=== PATIENT | male | born 1940 | race Caucasian/White ===

== ENCOUNTER 2019-08-17 20:05 | Emergency (ER) | payer MEDICARE, SELFPAY ==
--- NOTE | ~2019-08-17 | XR_ITS ---
EXAMINATION: XR chest ET placement INDICATION: Endotracheal tube placement TECHNIQUE: Portable AP chest at 2103 hours COMPARISON: 07/30/2015 FINDINGS: The endotracheal tube ends approximately 2.3 cm above the adam. There is mild chronic ate lectasis in the left mid and lower lung zones. There appear to be mild diffuse interstitial and airsp syl opacities. The heart size is upper limits of normal for technique. A small left pleural effusion is questioned. No pneumothorax is identified. Suture anchors are noted in the left humeral head. Ther e is moderate right shoulder osteoarthritis. IMPRESSION: 1. Endotracheal tube approximately 2 cm above the adam. 2. Possible diffuse lung disease which could reflect atelectasis and/or pulmonary edema and/or pneumo isaac. Reviewed, dictated and finalized at location A. TY ONE DEALER IMPRESSION: 1. Endotracheal tube approximately 2 cm above the adam. 2. Possible diffuse lung disease which could reflect atelectasis and/or pulmona ry edema and/or pneumonia.
--- NOTE | ~2019-08-17 | CT_ITS ---
EXAMINATION: CT brain wo con INDICATION: Unresponsive, CODE BLUE COMPARISON: 07/28/2015 TECHNIQUE: Standard unenhanced head CT. The dose-length product (DLP) was 605.33 mGy-cm. The mA was a djusted according to patient size. Iterative reconstruction technique was employed. FINDINGS: There is no acute intraparenchymal hemorrhage. No evidence of mass lesion. No evidence of a cute infarction. There is mild periventricular and subcortical hypodensity probably related to small vessel ischemic disease. There is mild prominence of the sulci and ventricles related to cerebral atr ophy. Intracranial calcified cerebral atherosclerosis is noted. There are no extra-axial collections. There is no mass effect or midline shift. Changes in the globes are likely from ocular lens surgery. The visualized sinuses and mastoid air cells are well aerated. IMPRESSION: 1. No acute intracranial abnormality. 2. Age related findings. Reviewed, dictated and finalized at location A. LSMITH APPRENTICE
--- NOTE | ~2019-08-17 | XR_ITS ---
EXAMINATION: XR abdomen NG/feed tube insert INDICATION: Nasogastric tube insertion TECHNIQUE: KUB NG at 2130 hours COMPARISON: None available FINDINGS: The nasogastric tube is in the stomach. The bowel gas pattern is unremarkable. Surgical cli ps in the right upper quadrant are likely from prior cholecystectomy. Airspace opacities are present in the visualized lung bases. IMPRESSION: 1. Nasogastric tube in the stomach. 2. Left basilar airspace opacities, consistent with atelectasis versus pneumonia. Reviewed, dictated and finalized at location A. EY BREEDER IMPRESSION: 1. Nasogastric tube in the stomach. 2. Left basilar airspace opacities, consistent with atelectasis versus pneumoni a.
--- NOTE | 2019-08-17 20:03 | PC.NURSE ---
2003: pt arrived to ed w/ ems rinku performing chest compressions. pt was placed on monitor, showed effective compressions. 2005: dose of epi given through [facility] per md verbal orders 2007: 1L NS started in [facility] IO 2008: dose of epi given per md verbal orders 2009: pulse check, has pulse 2010: pt states pt is DNR but states she wants to dr to intubate pt, she states she ins't sure if she wants pt to be placed on vent just yet. resp. kings airway still placed, resp therapist 2014: md intubated pt w/ 7.5, 24 @ lip, respiratory therapist continuing bagging pt per orders. pt 02 saturation 96% at this time. 2016: VS: 73HR, 96% w/ resp bagging, 158/59, 23R 2023: EKG done on pt 2039: #20 in RAC at this time 2045: blood sent to lab at ths time 0: 1L LR started in RAC at this time per md orders 2048: 14F coude urinary catheter placed in pt by veronica spares scheduler 2100: 16F OG placed in pt by this RN see code sheet
--- NOTE | 2019-08-17 20:08 | ED.CPR ---
HPI - CPR General Chief Complaint: Cardiac Arrest/CPR Stated Complaint: unresp Time Seen by Provider: 08/17/19 20:05 Source: EMS Mode of arrival: EMS Limitations: clinical condition History of Present Illness HPI narrative: Pt is a 79 y/o male who presents to the ED, via EMS, with c/o a cardiac arrest. EMS was at bedside and provided the information. Pt?s cardiac arrest was witnessed by his spouse. Pt was parking his car at [employer] and his noticed that he began to ?act funny. Pt got out of the car and fell on the ground before his cardiac arrest began. EMS states that they arrived to the scene three minutes after EMS was called. EMS arrived to the scene at 19:45. EMS started CPR on scene. Pt's blood sugar was 204 at the scene. Pt was in asystole during the ride to the ED. Pt's spouse arrived later to the room after EMS left the room and she states the pt is a DNR. Pt's blood sugar was 204 at the scene. Pt was in asystole during the ride to the ED. HPI is limited due to pt's clinical condition. complaint: other (collapsed after getting out of the car) Onset (ago): minute(s) Time: 19:53 Timing confirmed by: spouse Place: other ([employer]) Initial findings in the field: other rhythm (asystole) Associated injuries: No Known history of: other (CHF) Treatments prior to arrival: chest compressions Related Data Allergies Allergy/AdvReac Type Severity Reaction Status Date / Time No Known Allergies Allergy Verified 10/23/18 17:03 Review of Systems Review of Systems: ROS unobtainable: other (due pt's clinical condition) [facility] Past Medical History Medical History (Updated 08/18/19 @ 00:36 by Dayna Mcgee MD) Anxiety Arthritis Cataracts, bilateral CHF (congestive heart failure) CKD (chronic kidney disease), stage III Clostridium difficile carrier CVA (cerebrovascular accident) DDD (degenerative disc disease) bilateral hips Depression DNR (do not resuscitate) Falls Foot fracture GERD (gastroesophageal reflux disease) History of angina HTN (hypertension) Hyperlipidemia Peripheral neuropathy Peripheral vascular disease Sleep apnea Type II diabetes mellitus UTI (urinary tract infection) Surgical History Surgical History (Updated 08/17/19 @ 20:21 by Georgina Fisher) H/O left knee surgery H/O prostatectomy History of left hip replacement History of right hip replacement Hx of cataract removal with insertion of prosthetic lens left Hx of shoulder surgery leftleft S/P TURP Family History Family History (Updated 12/04/18 @ 15:29 by DOCTOR UNKNOWN) Father Diabetes mellitus Other Family history of arthritis Family history of cardiovascular disease Family history of malignant neoplasm Hypertension Social History Social History Smoking status: Never smoker Alcohol intake: never Exam Const: General: ill appearing Limitations: physical limitations Other: unresponsive HENMT: Head: no palpable skull fracture and normocephalic Throat: other Other: food in oropharynx Eyes: Pupils: dilated and fixed Chest: Chest palpation & inspection: normal inspection of the chest Resp: Auscultation: diminished lung sounds Other: patient intubated Cardio: Rhythm: abnormal rhythm (CPR in progress, after CPR stopped it is regular rate and regular rhythm) GI: Inspection: distended Auscultation: hypoactive bowel sounds Course Course Emergency Course: Patient presented in cardiac arrest . He was already intubated with Artem TUbe on arrival. As he was being reintubated with Endotracheal tube , his states patient is a DNR so CPR was stopped. Patient was found to have palpable left femoral pulse. I discussed with and family that it is unclear cause at this time. I Discussed with her that patient will be moved to ICU to see how he does over night to evaluate neurological function. PAtient is not responsive to stimuli a
--- NOTE | 2019-08-17 20:28 | ECG_ITS ---
Measurements Intervals [place] Rate: 55 P: OK: 0 QRS: 88 QRSD: 138 T: -25 QT: 442 QTc: 426 Interpretive Statements ECTOPIC ATRIAL BRADYCARDIA RIGHT BUNDLE BRANCH BLOCK BORDERLINE ST-T WAVE ABNORMALITY- INFERIOR LEADS ABNORMAL ECG Electronically Signed On 08-18-2019 7:35:[address] [employer]AND[address]APE ARCHITECT by Aramis Murphy D.O.
[2019-08-17 21:03] LABS: Add Urine Microscopic? YES; Appearance Urine Cloudy (Clear); Bacteria Urine 1+ /hpf; Bilirubin Urine Negative (Negative); Blood Urine 1+ (Negative); Color Urine Yellow (Yellow); Glucose Urine UA 1+ mg/dL (Negative); Ketones Urine Negative (Negative); Leukocyte Esterase Ur Negative LEU/UL (Negative); Mucus Urine Rare /lpf; Nitrate Urine Negative (Negative); Protein Urine 2+ mg/dL (Negative); Specific Grav Ur 1.017 (1.001-1.035); Squamous Epithelial Cell Urine Rare /hpf (Few); Urobilinogen Urine Negative mg/dL (<2.0)
[2019-08-17 21:09] LABS: Basophils Percent Auto 0.3 % (0.2-1.2); Eosinophils Absolute Auto 0.1 K/mm3 (0-0.3); Eosinophils Percent Auto 0.8 % (0-4.4); Hematocrit 38.8 % (42.0-52.0); Hemoglobin 11.7 g/dL (14.0-18.0); INR 1.2; Immature Granulocyte Absolute 0.47 K/mm3 (0.00-0.031); Immature Granulocyte Percent A 3.1 % (0-0.5); Lactic Acid Reflex 6.6 mmol/L (0.7-2.1); Lymphocytes Absolute Auto 6.98 K/mm3 (0.9-3.2); Lymphocytes Percent Auto 46.1 % (18.3-44.2); Mean Corpuscular HGB Conc 30.2 g/dl (32-36); Mean Platelet Volume 9.6 fl (7.4-10.4); Monocytes Absolute Auto 0.9 K/mm3 (0.1-0.6); Monocytes Percent Auto 5.9 % (2.6-8.5); Neutrophils Absolute Auto 6.6 K/mm3 (1.3-6.7); Neutrophils Percent Auto 43.8 % (45.5-73.1); Platelet Count Result 256 k/mm3 (150-375); Prothrombin Time 14.6 Seconds (11.1-14.7); Red Blood Count 4.04 M/mm3 (4.6-6.20); Red Cell Distribution Width 13.2 % (11.5-14.5); White Blood Count 15.1 K/mm3 (4.5-10.0)
[2019-08-17 21:11] LABS: Albumin Level 3.4 g/dL (3.5-5.1); Alkaline Phosphatase 100 U/L (38-126); Aspartate Amino Transferase 152 U/L (17-59); Bilirubin,Total 0.3 mg/dL (0.2-1.3); Blood Urea Nitrogen 65 mg/dL (9-20); Calcium 8.2 mg/dL (8.4-10.2); Carbon Dioxide 18 mmol/L (22-30); Chloride 107 mmol/L (98-107); Estimated Glomerular Filt Rate 26; Glucose 269 mg/dL (75-110); Magnesium 2.3 mg/dL (1.6-2.3); Potassium 3.8 mmol/L (3.4-5.0); Sodium 143 mmol/L (137-145)
[2019-08-17 21:15] LABS: Troponin I < 0.012 ng/mL (0.000-0.034)
--- NOTE | 2019-08-17 21:30 | PC.NURSE ---
pt family in room w/ pt at this time. still unsure if she wants pt to stay on ventilator. md notified by this rn. will continue to monitor.
[2019-08-17 21:32] LABS: Alanine Aminotransferase 158 U/L (4-50)
[2019-08-17 21:35] VITALS: PULSE 64; O2SAT 100
[2019-08-17 21:45] LABS: Alveolar/Arterial O2 Gradient 440.7 mmHg; Base Excess ABG -10.2 mEq/l (+/-2.0); Carboxyhemoglobin 0.5 % THb (0-2.0); Fractional Inspired Oxygen 100 %; HCO3 ABG 17.4 mEq/l (22.0-26.0); Methemoglobin ABG 0.2 %THb (0-1.5); Oxygen Content ABG 17.4 %vol (16.0-22.0); Oxygen Saturation ABG 99.3 % (95.0-100.0); Oxyhemoglobin 98.1 % THb (90.0-100.0); PCO2 ABG 44.7 mmHg (35.0-45.0); PO2 ABG 227.6 mmHg (80.0-100.0); PO2 FiO2 Ratio Arterial Blood 2.28 %; Reduced Hemoglobin 1.2 %THb (0-5.0); Total Hemoglobin 12.2 g/dL (12.0-18.0)
[2019-08-17 21:46] LABS: Device VENTILATOR; Modified Allen's Test Pass; Site Drawn RIGHT RADIAL; pH ABG 7.207 (7.350-7.450)
[2019-08-17 21:47] LABS: Arterial Blood Gas PEEP 5 cmH2O; Arterial Blood Gas Tidal Volume 500 ml; Arterial Blood Gas Vent Mode CMV; Arterial Blood Gas Ventilator rate 18 /MIN
--- NOTE | 2019-08-17 22:17 | PC.NURSE ---
pt extubated per family request. family, this RN, resp, and md parker w/ pt at bedside. 4mg morphine given at 2223 to pt per verbal order from dr. parker. TOD called by keith nichols at 2228.
--- NOTE | 2019-08-17 23:37 | PC.NURSE ---
CALLED EYELET MACHINE OPERATOR AT [id number] TO REPORT CALLED [facility]TS AT [id number]
[2019-08-17 23:48] LABS: Reflex Lactic Acid Yes or No Add Lactic
--- NOTE | 2019-08-18 00:36 | PC.NURSE ---
CORNER CUTTER MACHINE OPERATOR HAS RELEASED THE BODY DR SANJUANITA PULLIAM HAS BEEN NOTIFIED AND WILL SIGN CERTIFICATE
== END 2019-08-17 22:29 | disposition expired ==
PROVIDERS: Emergency Provider General Practice; PCP Family Medicine
DX: I46.9 Cardiac arrest, cause unspecified (principal); J96.90 Respiratory failure, unspecified, unspecified whether with hypoxia or hypercapnia; R91.8 Other nonspecific abnormal finding of lung field; Z66 Do not resuscitate; M19.90 Unspecified osteoarthritis, unspecified site; I50.9 Heart failure, unspecified; I13.0 Hypertensive heart and chronic kidney disease with heart failure and stage 1 through stage 4 chronic kidney disease, or unspecified chronic kidney disease; E11.22 Type 2 diabetes mellitus with diabetic chronic kidney disease; N18.3 Chronic kidney disease, stage 3 (moderate); K21.9 Gastro-esophageal reflux disease without esophagitis; E11.42 Type 2 diabetes mellitus with diabetic polyneuropathy; E78.5 Hyperlipidemia, unspecified; Z86.73 Personal history of transient ischemic attack (TIA), and cerebral infarction without residual deficits; Z90.79 Acquired absence of other genital organ(s); Z96.643 Presence of artificial hip joint, bilateral; Z98.42 Cataract extraction status, left eye; Z96.1 Presence of intraocular lens; I45.10 Unspecified right bundle-branch block; R00.1 Bradycardia, unspecified; R82.998 Other abnormal findings in urine
CPT/HCPCS: 31500; 36415; 36600; 70450; 80053; 81001; 82375; 82805; 83050; 83605; 83735; 84484; 85025; 85610; 87086; 92950; 93005; 96374; 99291; J2270